=== PATIENT | female | born 1960 | race Caucasian/White ===

== ENCOUNTER 2023-02-25 05:55 | Observation (INO) | payer BC ==
[2023-02-20 09:44] LABS: Absolute Lymphocytes (CBC) 2.6 K/uL (0.7-4.9); Hematocrit 41.3 % (36.0-45.0); Lymphocytes % 42.7 % (15.3-44.8); MCV 96.4 fL (80-100); RBC Red Blood Cell Count 4.28 M/uL (3.86-4.86)
[2023-02-20 10:02] LABS: Potassium 4.7 mEq/L (3.5-5.1)
[2023-02-20 10:37] LABS: Protime INR 0.93
[2023-02-25] MEDS: Ringers Lactate 1,000 ML IV ONE ×2 (06:20→08:13)
[2023-02-25] MEDS ORDERED: VANCOMYCIN 1 GM/VIAL ONE (06:20)
[2023-02-25] MEDS ORDERED: FENTANYL CITR 100 MCG/2 ML ONE ×2 (07:19→08:04)
[2023-02-25] MEDS ORDERED: dexAMETHasone 10 MG/ML VIAL ONE ×2 (07:19→08:04)
[2023-02-25] MEDS ORDERED: EPINEPHRINE/PF 1 MG/ML AMP ONE (07:20)
[2023-02-25] MEDS ORDERED: LIDOCAINE 1% MPF 2 ML AMPULE ONE (07:20)
[2023-02-25] MEDS ORDERED: MIDAZOLAM HCL 2 MG/2 ML INJ ONE (07:20)
[2023-02-25] MEDS ORDERED: ROCURONIUM 50 MG/5 ML VIAL IV ONE ×2 (08:04→10:59)
[2023-02-25] MEDS ORDERED: LIDOCAINE 2% MPF 5 ML VIAL ONE ×2 (08:04→08:38)
[2023-02-25] MEDS ORDERED: propofoL 200 MG/20 ML VIAL IV ONE (08:04)
[2023-02-25] MEDS ORDERED: KETOROLAC 30 MG/ML INJ ONE (08:06)
[2023-02-25] MEDS ORDERED: ONDANSETRON 4 MG/2 ML VIAL ONE ×2 (08:06→12:34)
[2023-02-25] MEDS ORDERED: NA CHLORIDE 0.9% 500 ML ONE (08:18)
[2023-02-25] MEDS ORDERED: CEFAZOLIN SODIUM 1 GM/VIAL ONE ×2 (08:24→09:02)
[2023-02-25] MEDS ORDERED: NS 0.9% VIAL 20 ML ONE (08:24)
[2023-02-25] MEDS ORDERED: NS 0.9% VIAL 10 ML ONE ×2 (09:02→09:26)
[2023-02-25] MEDS ORDERED: Ringers Lactate 1,000 ML IV ONE (09:31)
[2023-02-25] MEDS ORDERED: SUGAMMADEX SODIUM 200 MG/2 ML VIAL IV ONE (11:03)
--- NOTE | 2023-02-25 12:25 | P.BOP ---
Preoperative diagnosis: left shoulder osteoarthritis Postoperative diagnosis: same Primary procedure: left total shoulder arthroplasty Resort Keeper: NONE,NONE Estimated blood loss: 50 cc Specimen: left humeral head Findings: see dictation Anesthesia: General Complications: None Implants: Biomet Alba 11 Mini stem, 2 glenoid w/ TM post, 46x18 head Fluids & blood products: per anesthesia record; Transferred to: Recovery Room Condition: Good
--- NOTE | 2023-02-25 12:31 | P.OP ---
Preoperative diagnosis: left shoulder osteoarthritis Postoperative diagnosis: same Primary procedure: left total shoulder arthroplasty Anesthesia: general Estimated blood loss: 50 cc Specimen: left humeral head Findings: see dictation Operative Technique: Indication For Procedure: Margo is a 62-year-old female who presented to my clinic with signs, symptoms and x-ray findings consistent with severe left shoulder osteoarthritis. Patient failed conservative treatment measures including home exercise program as well as corticosteroid injections. Her pain affected her activities of daily living. I discussed with the patient risks and benefits associated with operative and nonoperative treatment. She expressed understanding and elected to proceed with operative treatment. Description Of Procedure: After informed consent was obtained, the patient was identified in the preoperative holding area. The left upper extremity was marked. The patient was then taken back to the PACU and underwent an interscalene block to her left upper extremity performed by Anesthesia. She was then transferred to the operating table in a supine fashion and placed under general endotracheal anesthesia. She was placed in the beach chair position with her extremities well padded. The left upper extremity was then prepped and draped in the usual sterile fashion. A time-out was initiated. The correct patient and procedure were confirmed and identified. The patient did receive preoperative prophylactic antibiotics. Ativan was placed over the left shoulder. Approximately a 12 cm incision was made to the left shoulder using a deltopectoral approach, centered just proximal to the medial aspect of the arm. Dissection was then taken to the fascia. The cephalic vein was identified and was marked in the interval. The cephalic vein was gently retracted medially. A Kolbel retractor was then placed, protecting the deltoid as well as pec, retracting the pec medially and the deltoid laterally. It was placed just deep to the coracoid and the conjoined tendon protecting the musculocutaneous nerve. The axillary nerve was also identified and protected throughout the case. The subscapularis was identified. At the base of the subscapularis, 3 blood vessels were tied and cauterized using Bovie electrocautery. Just medial to the lesser tuberosity, the subscapularis was transected. Medial aspect to the tendon was then tagged using #5 Ethibond sutures from superior to inferior. The subscapularis was then gently retracted medially. The capsule was then released off the proximal humerus to the level of the humeral neck near the 6 o'clock position. A large osteophyte of the undersurface of the humeral neck was then removed using an osteotome and rongeurs. A Hohmann retractor was then placed gen tly behind the humeral head and the humeral head was then dislocated by extending the shoulder as well as externally rotating it. The rotator cuff was found to be intact. Entry reamer was then placed down the proximal humerus in a sequential fashion, a size 11 mm reamer was placed. Once it was placed in a proper depth and there was good overall fit, the cutting guide was then placed on the reamer where 30 degrees of retroversion was marked and the cutting jig was placed over the reamer and pinned into position on the humeral head. The cut was made just superior to the rotator cuff insertion. Once pinned into position and a proper version was marked, a saw was then used to cut the humeral head. The cut humeral head segment was sent to the back table and measured and a size 46 x 18 mm head was selected. The proximal humerus was then broached in 1 mm increments from a size 7 mm broach to a size 11 mm broach with good overall fit. A cap was then placed in the proximal humerus and then gently retracted. Batman and Avi retractors were then placed and a Hohmann retractor was placed in the superior aspect of the glenoid. Labrum was then excised and there was a capsule release anterior, posteriorly, inferiorly and superiorly for to adequate exposure to the glenoid. Once the glenoid was exposed properly, a pin was placed in the central position. The glenoid surface was then reamed to debride off the cartilage surface to near bleeding bony bed. Central peg was then was then drilled over the central guide pin and the glenoid was prepared. The wound was then irrigated thoroughly with normal saline. A small glenoid was selected. The cement was prepared on the back table and placed within the 3 peripheral pecs and the central peg was left clean given the porous coating of the glenoid implant. Final glenoid implant was then placed andheld into position until the cement was completely hard. The final size 13 mm mini stem was then placed up to the proximal humerus. It was then irrigated. There was good overall fit. It was then trialed using a using a 46 x 18 mm head. There was good overall fit and range of motion with the selective head. A final 46 x 18 head was then placed and knocked into position. The shoulder was again reduced at full range of motion with good overall stability noted. The subscapularis was then repaired using #5 Ethibond sutures which had been placed earlier with a free needle. There was good overall external rotation with maintenance of repair. Next, the retractors were then removed and superficial fascia was approximated using a 0 Vicryl, subcutaneous tissue was approximated using a 2-0 Vicryl, skin was approximated using alondra. Sterile dressings were applied. The patient was placed in a shoulder immobilizer, awakened, and transferred to the PACU in stable condition. Postoperative Plan: She will be admitted to the hospital overnight for observation. Physical Therapy will be consulted to get the patient up and moving around. She will be discharged in the morning after pain is controlled. Complications: None Implants: Biomet Alba 11 mini stem, 2 Glenoid with TM post, 46x18 mm head Fluids & blood products: per anesthesia record Transferred to: Recovery Room Condition: Good
[2023-02-25] MEDS ORDERED: DOCUSATE NA 100 MG CAP PO PRN (12:34)
[2023-02-25] MEDS ORDERED: HYDROCODONE/APAP 7.5/325 MG TAB PO PRN (12:34)
[2023-02-25] MEDS ORDERED: ONDANSETRON 4 MG/2 ML VIAL IV PRN (12:34)
--- NOTE | 2023-02-25 12:53 | RAD REPORT ---
EXAM DESCRIPTION: Shoulder 1 View - 02/25/2023 12:29 pm CLINICAL HISTORY: S/P LEFT TOTAL SHOULDER ARTHROPLASTY COMPARISON: Shoulder Left Wo Cont dated 04/21/2022 TECHNIQUE: Single AP view of the left shoulder FINDINGS: Left total shoulder arthroplasty hardware in satisfactory alignment. Skin alondra and soft tissue gas in the vicinity of the arthroplasty, relating to recent postoperative changes. There is n o periprostatic fracture. AC joint shows mild degenerative changes. No acute or suspicious findings. Interstitial prominence in the visualized central lungs, could relate to mild congestion or fluid ove rload, please correlate clinically. IMPRESSION: Expected postoperative appearance of left total shoulder arthroplasty as above.
--- OUTSIDE RECORDS SUMMARY | 2023-02-25 12:56 | XMS REPORT | Clinical Summary ---
:1960 Author Organization [facility] Address [address] [place] [address] Care Team Providers Name Role Phone Michael Francois MD Unavailable Aide Nickerson MD Primary Care Provider Allergies Active Allergy Reactions Severity Noted Date Comments Penicillins Itching 02/23/2019 Reaction as a y oung adult Medications Medication Sig Dispensed Refills Start Date End Date Status cholecalciferol, Take 1 capsule by 0 Active vitamin D3, (VITAMIN mouth daily. D3) 2,000 unit capsule zinc gluconate 50 mg Take 50 mg by 0 Active tablet mouth daily. ascorbic acid, vitamin Take 1,000 mg by 0 Active C, (vitamin C) 1000 mg mouth daily. tablet oxybutynin Take by mouth. 0 Acti ve (DITROPAN-XL) 10 mg 24 hr tablet Active Problems Problem Noted Date Submucous leiomyoma of uterus 06/22/2019 Mass of uterus 03/02/2019 Stenosis of cervix uteri 02/24/2019 Postmenopausal bleeding 02/23/2019 Morbid (severe) obesity due to excess calories 019 Family history of malignant neoplasm of breast 019 Encounters Date Type Specialty Care Team Description 08/08/2022 Follow-Up Gynecology Aide Nickerson Endometrium thickened (Primary Dx); MD Enrrique Postmenopausal bleeding; Morbid (severe) obesity due to excess calories; Exercise counse ling 08/08/2022 Ancillary Procedure Radiology Barry Galvan PA En dometrium thickened; Postmenopausal bleeding 08/08/2022 Travel after 02/25/2022 Surgical History Surgery Date Site/Laterality Comments TUBAL LIGATION REVISION ARTHOPLASTY KNEE 01/27/2020 - 02/26/2020 Medical History Medical History Date Comments Morbid obesity Family History Medical History Relation Name Comments Breast cancer Maternal Aunt Breast cancer Mother Breast cancer Sister 1 Breast cancer Sister 2 Relation Name Status Comments Maternal Aunt Mother diagnosed in her 40s Sister 1 Alive diagnosed in her 40s Sister 2 Alive diagnosed in her late 60s Social History Tobacco Use Types Packs/Day Years Used Date Smoking Tobacco: Former Cigarettes Quit : 2005 Smokeless Tobacco: Never Alcohol Use Standard Drinks/Week Comments Yes 0 (1 standard drink = 0.6 oz pure alcoho l) occasionally 1-2 beer or wine Sex Assigned at Date Recorded Female 09/13/2019 7:57 AM [employer] Job Start Date Occupation Industry Not on file Not on file Not on file Obstetrics History Para Term AB IAB SAB Ectopic Multiple Living Live Births 3 3 3 3 Date Outcome GA Total Labor/2nd/3rd Weight Sex Delivery Anes PTL Heike A 1 A5 Name Clin Labor Term Term Term Last Filed Vital Signs Vital Sign Reading Time Taken Comments Blood Pressure 136/70 08/08/2022 11:41 AM [employer] Pulse 70 08/08/2022 11:41 AM [employer] Temperature 36.7 C (98.1 F) 08/08/2022 11:41 AM [employer] Respiratory Rate 17 08/08/2022 11:41 AM [employer] Oxygen Saturation - - Inhaled Oxygen Concentration - - Weight 114.3 kg (251 lb 15.8 oz) 08/08/2022 11:41 AM [employer] Height - - Body Mass Index 42.24 02/23/2019 10:24 AM CDT Plan of Treatment Date Type Specialty Care Team Description 08/07/2023 Ancillary Procedure Radiology Carlos Nickerson MD [address] [place], [place] [address] ([place]) 08/07/2023 Follow-Up Gynecology Aide Nickerson MD [address] [place], [place] [address] ([place]) Health Maintenance Due Date Last Done Comments COVID-19 Vaccination (#1) 03/27/1961 Procedures Procedure Name Priority Date/Time Associated Diagnosis Comme nts US 3D NOT UTILIZING Routine 08/08/2022 9:42 AM Endometrium Re sults for this WORKSTATION [employer] thickened procedure are in Postmenopausal the results bleeding section. US PELVIS LIMITED Routine 08/08/2022 9:42 AM Endometrium Resu lts for this [employer] thickened procedure are in Postmenopausal the results bleeding section. US TRANSVAGINAL Routine 08/08/2022 9:42 AM Endometrium Result s for this [employer] thickened procedure are in Postmenopausal the results bleeding section. after 02/25/2022 Results US Transvaginal (08/08/2022 9:42 AM VP [employer]) Anatomical Region Laterality Modality Pelvis Ultrasound Specimen (Source) Anatomical Collection Method Collection Time Re ceived Time Location / / Volume Laterality 08/08/2022 9:43 AM [employer] Impressions 08/08/2022 10:07 AM [employer] Endometrium is not completely evaluated with persistent endometrial thickening. No significant interval change in size o f fibroids including a lesion involving the endometrium which may be a submucosal fibroid. Normal sonographic appearance of the ova alonso. Narrative 08/08/2022 10:07 AM [employer] Examination: US TRANSVAGINAL, US PELVIS LIMITED, US 3D NOT UTILIZING WORKSTATION on 08/08/2022 9:42 AM Clinical History: Endometrium thickened Postmenopausal bleeding Indication: Other:, Thickened endometriu m, history of post-menopausal bleeding Comparison: 08/09/2021 Technique: Grayscale and color Doppler t ransvaginal pelvic ultrasound. Additional Limited transabdominal pelvic exam was performed. 3-D evaluation of the endometrium. Findings: Nabothian cysts at the cervix. Uterus measures 6.8 x 4.1 x 4.9 cm. Endo metrium is not fully visualized with thickness measuring up to 1.4 cm. No increased vascular flow is appreciated endometrium. Uterine fibroids have not significantly changed in interval. There is a fibroid at the left uterus measuring 1.5 x 1.0 x 1.7 cm. Previously 1.5 x 1.0 x 1.7 cm. A lesion involving the endometrium may rep resent a submucosal fibroid which measur es 1.2 x 0.9 x 1.4 cm. Previously this measured 1.2 x 1.4 x 0.9 cm. Right ovary is unremarkable measuring 1. 4 x 1.5 x 1.2 cm with a volume of 1.3 mL. The left ovary is only seen transabdominally measuring 1.7 x 1.6 x 1.4 cm with a volume of 2 mL. No pelvic fluid. Procedure Note Lina Frias MD - 08/08/2022 Examination: US TRANSVAGINAL, US PELVIS LIMITED, US 3D NOT UTILIZING WORKSTATION on 08/08/2022 9:42 AM Clinical History: Endometrium thickened Postmenopausal bleeding Indication: Other:, Thickened endometriu m, history of post-menopausal bleeding Comparison: 08/09/2021 Technique: Grayscale and color Doppler t ransvaginal pelvic ultrasound. Additional Limited transabdominal pelvic exam was performed. 3-D evaluation of the endometrium. Findings: Nabothian cysts at the cervix. Uterus measures 6.8 x 4.1 x 4.9 cm. Endo metrium is not fully visualized with thickness measuring up to 1.4 cm. No increased vascular flow is appreciated endometrium. Uterine fibroids have not significantly changed in interval. There is a fibroid at the left uterus measuring 1.5 x 1.0 x 1.7 cm. Previously 1.5 x 1.0 x 1.7 cm. A lesion involving the endometrium may represent a submucosal fibroid which measures 1.2 x 0.9 x 1.4 cm. Previously this measured 1.2 x 1.4 x 0.9 cm. Right ovary is unremarkable measuring 1. 4 x 1.5 x 1.2 cm with a volume of 1.3 mL. The left ovary is only seen transabdominally measuring 1.7 x 1.6 x 1.4 cm with a volume of 2 mL. No pelvic fluid. IMPRESSION: Endometrium is not completely evaluated with persistent endometrial thickening. No significant interval change in size o f fibroids including a lesion involving the endometrium which may be a submucosal fibroid. Normal sonographic appearance of the ova alonso. Barry BUAMANN US ORDERABLES US Pelvis Limited (08/08/2022 9:42 AM [employer]) Anatomical Region Laterality Modality Pelvis Ultrasound Specimen (Source) Anatomical Collection Method Collection Time Re ceived Time Location / / Volume Laterality 08/08/2022 9:43 AM VP [employer] Impressions 08/08/2022 10:07 AM VP [employer] Endometrium is not completely evaluated with persistent endometrial thickening. No significant interval change in size o f fibroids including a lesion involving the endometrium which may be a submucosal fibroid. Normal sonographic appearance of the ova alonso. Narrative 08/08/2022 10:07 AM VP [employer]IC Examination: US TRANSVAGINAL, US PELVIS LIMITED, US 3D NOT UTILIZING WORKSTATION on 08/08/2022 9:42 AM Clinical History: Endometrium thickened Postmenopausal bleeding Indication: Other:, Thickened endometriu m, history of post-menopausal bleeding Comparison: 08/09/2021 Technique: Grayscale and color Doppler t ransvaginal pelvic ultrasound. Additional Limited transabdominal pelvic exam was performed. 3-D evaluation of the endometrium. Findings: Nabothian cysts at the cervix. Uterus measures 6.8 x 4.1 x 4.9 cm. Endo metrium is not fully visualized with thickness measuring up to 1.4 cm. No increased vascular flow is appreciated endometrium. Uterine fibroids have not significantly changed in interval. There is a fibroid at the left uterus measuring 1.5 x 1.0 x 1.7 cm. Previously 1.5 x 1.0 x 1.7 cm. A lesion involving the endometrium may rep resent a submucosal fibroid which measur es 1.2 x 0.9 x 1.4 cm. Previously this measured 1.2 x 1.4 x 0.9 cm. Right ovary is unremarkable measuring 1. 4 x 1.5 x 1.2 cm with a volume of 1.3 mL. The left ovary is only seen transabdominally measuring 1.7 x 1.6 x 1.4 cm with a volume of 2 mL. No pelvic fluid. Procedure Note Lina Frias MD - 08/08/2022 Examination: US TRANSVAGINAL, US PELVIS LIMITED, US 3D NOT UTILIZING WORKSTATION on 08/08/2022 9:42 AM Clinical History: Endometrium thickened Postmenopausal bleeding Indication: Other:, Thickened endometriu m, history of post-menopausal bleeding Comparison: 08/09/2021 Technique: Grayscale and color Doppler t ransvaginal pelvic ultrasound. Additional Limited transabdominal pelvic exam was performed. 3-D evaluation of the endometrium. Findings: Nabothian cysts at the cervix. Uterus measures 6.8 x 4.1 x 4.9 cm. Endo metrium is not fully visualized with thickness measuring up to 1.4 cm. No increased vascular flow is appreciated endometrium. Uterine fibroids have not significantly changed in interval. There is a fibroid at the left uterus measuring 1.5 x 1.0 x 1.7 cm. Previously 1.5 x 1.0 x 1.7 cm. A lesion involving the endometrium may represent a submucosal fibroid which measures 1.2 x 0.9 x 1.4 cm. Previously this measured 1.2 x 1.4 x 0.9 cm. Right ovary is unremarkable measuring 1. 4 x 1.5 x 1.2 cm with a volume of 1.3 mL. The left ovary is only seen transabdominally measuring 1.7 x 1.6 x 1.4 cm with a volume of 2 mL. No pelvic fluid. IMPRESSION: Endometrium is not completely evaluated with persistent endometrial thickening. No significant interval change in size o f fibroids including a lesion involving the endometrium which may be a submucosal fibroid. Normal sonographic appearance of the ova alonso. Barry BAUMANN US ORDERABLES US 3D Not Utilizing Workstation (08/08/2022 9:42 AM VP [employer]) Anatomical Region Laterality Modality Ultrasound Specimen (Source) Anatomical Collection Method Collection Time Re ceived Time Location / / Volume Laterality 08/08/2022 9:43 AM VP [employer] Impressions 08/08/2022 10:07 AM VP [employer]IC Endometrium is not completely evaluated with persistent endometrial thickening. No significant interval change in size o f fibroids including a lesion involving the endometrium which may be a submucosal fibroid. Normal sonographic appearance of the ova alonso. Narrative 08/08/2022 10:07 AM [employer] Examination: US TRANSVAGINAL, US PELVIS LIMITED, US 3D NOT UTILIZING WORKSTATION on 08/08/2022 9:42 AM Clinical History: Endometrium thickened Postmenopausal bleeding Indication: Other:, Thickened endometriu m, history of post-menopausal bleeding Comparison: 08/09/2021 Technique: Grayscale and color Doppler t ransvaginal pelvic ultrasound. Additional Limited transabdominal pelvic exam was performed. 3-D evaluation of the endometrium. Findings: Nabothian cysts at the cervix. Uterus measures 6.8 x 4.1 x 4.9 cm. Endo metrium is not fully visualized with thickness measuring up to 1.4 cm. No increased vascular flow is appreciated endometrium. Uterine fibroids have not significantly changed in interval. There is a fibroid at the left uterus measuring 1.5 x 1.0 x 1.7 cm. Previously 1.5 x 1.0 x 1.7 cm. A lesion involving the endometrium may rep resent a submucosal fibroid which measur es 1.2 x 0.9 x 1.4 cm. Previously this measured 1.2 x 1.4 x 0.9 cm. Right ovary is unremarkable measuring 1. 4 x 1.5 x 1.2 cm with a volume of 1.3 mL. The left ovary is only seen transabdominally measuring 1.7 x 1.6 x 1.4 cm with a volume of 2 mL. No pelvic fluid. Procedure Note Lina Frias MD - 08/08/2022 Examination: US TRANSVAGINAL, US PELVIS LIMITED, US 3D NOT UTILIZING WORKSTATION on 08/08/2022 9:42 AM Clinical History: Endometrium thickened Postmenopausal bleeding Indication: Other:, Thickened endometriu m, history of post-menopausal bleeding Comparison: 08/09/2021 Technique: Grayscale and color Doppler t ransvaginal pelvic ultrasound. Additional Limited transabdominal pelvic exam was performed. 3-D evaluation of the endometrium. Findings: Nabothian cysts at the cervix. Uterus measures 6.8 x 4.1 x 4.9 cm. Endo metrium is not fully visualized with thickness measuring up to 1.4 cm. No increased vascular flow is appreciated endometrium. Uterine fibroids have not significantly changed in interval. There is a fibroid at the left uterus measuring 1.5 x 1.0 x 1.7 cm. Previously 1.5 x 1.0 x 1.7 cm. A lesion involving the endometrium may represent a submucosal fibroid which measures 1.2 x 0.9 x 1.4 cm. Previously this measured 1.2 x 1.4 x 0.9 cm. Right ovary is unremarkable measuring 1. 4 x 1.5 x 1.2 cm with a volume of 1.3 mL. The left ovary is only seen transabdominally measuring 1.7 x 1.6 x 1.4 cm with a volume of 2 mL. No pelvic fluid. IMPRESSION: Endometrium is not completely evaluated with persistent endometrial thickening. No significant interval change in size o f fibroids including a lesion involving the endometrium which may be a submucosal fibroid. Normal sonographic appearance of the ova alonso. Barry BAUMANN ORDERABLES after 02/25/2022 Insurance Payer Benefit Plan / Subscriber ID Effective Dates Phone Addre ss Type Group [employer] POS [id number] 2021-Present [id number] [place] [address] [address] [facility] (Home) [place] [id number] Margo Woody Personal/Family Self 1960 [address] [facility] (Home[facility] [place] [id number] Margo Woody Personal/Family Self 1960 [address] [facility] (Home) [place] [address] Care Teams Manager Farm Relationship Specialty Start Date End Date Michael Francois PCP - External Obstetrics/Gynecology 01/26/19 MD Manny Referring [address] [place] [address] Aide Nickerson, PCP - General Gynecological Oncology 02/23/[address] [place] [id number]
--- OUTSIDE RECORDS SUMMARY | 2023-02-25 12:59 | XMS REPORT | Continuity of Care Document ---
:1960 Author Organization [facility] t Address [address] [place] [address] Care Team Providers Name Role Phone [phone] Primary Care Physician Unavailable Allen Interiano Attending Clinician Unavailable Michele Malcolm Attending Clinician Unavailable SYSTEM, PROVIDER NOT IN Attending Clinician Unavailable KAREL PARRA Attending Clinician Unavailable LU CALHOUN Attending Clinician Unavailable RONNY GAMBINO Attending Clinician Unavailable Ronny Forbes Attending Clinician Doctor Unassigned, Mcnary Attending Clinician Unavailable RICHARD KELLER Attending Clinician Unavailable Richard Keller MD Attending Clinician Diamante Nickerson MD Attending Clinician DIAMANTE NICKERSON Attending Clinician Unavailable Barry Wei Attending Clinician Unavailable BARRY BOSS Attending Clinician Unavailable KAREL PARRA Attending Clinician Unavailable Ross Delacruz MD Attending Clinician [facility] Attending Clinician Unavailable ROSS DELACRUZ Attending Clinician Unavailable Only, Adc Test Attending Clinician Unavailable Ubaldo SAUCEDO Attending Clinician Unavailable Ubaldo De La Rosa Attending Clinician Doug HALL, Ronny Cortes Attending Clinician Unavailable Solano PAC, Lulu Hager Attending Clinician Karel Parra MD Attending Clinician SHERYL TOVAR Attending Clinician Unavailable Michele Malcolm Admitting Clinician Unavailable KAREL PARRA Admitting Clinician Unavailable LU CALHOUN Admitting Clinician Unavailable RONNY GAMBINO Admitting Clinician Unavailable ROSS DELACRUZ Admitting Clinician Unavailable Jayme RAMOS, Ross Admitting Clinician Ubaldo SAUCEDO Admitting Clinician Unavailable SHERYL TOVAR Admitting Clinician Unavailable Payers Payer Name Policy Type Policy Number Effective Date Expiration Date S [facility]orothy [facility] [id number] 2019-09-28 BLUE/ESSENTIAL 00:00:00 S [employer] 6 [id number] 2022-08-12 Common Spiri t Blue Shield of 00:00:00 - [facility] OUT OF STATE [id number] BS - PPO - [facility] BC-ADRIANA [id number] PCP Problems Condition Condition Condition Status Onset Resolution Last Treating Co mments Source Name Details Category Date Date Treatment Clinician Date Kidney Kidney Disease Active Univers stone stone 3-08 ity of 00:00: [address] Branch Morbid Morbid Disease Active Univers obesity obesity 3-07 [place]y of with [place] mass index 00 Me dical of of Branch 40.0-49.9 40.0-49.9 Left Left Disease Active Univers ureteral ureteral 3-07 ity of stone stone 00:00: [address] Osteoarthr Osteoarthr Disease Active C [facility] itis of 5-16 [facility] right knee right knee 00:00: Me dical 00 Center Displaced Displaced Disease Active 2019-[address] fracture fracture 1-18 [facility] of lateral of lateral 00:00: Me dical condyle of condyle of 00 Ce nter right right tibia, tibia, initial initial encounter encounter for closed for closed fracture fracture Acute Acute Disease Active 2019-[address] lateral lateral 10-15 [facility] meniscal meniscal 00:00: Medica l tear, tear, 00 Center initial initial encounter encounter Fracture Fracture Disease Active 2019-09 [facility] S t closed, closed, 10-15 [facility] fibula, fibula, 00:00: Medical shaft shaft 00 Center Closed Closed Disease Active 2019-09 Overview: [facility] fracture fracture 16 Form[facility] Col lege of lateral of lateral 00:00: g of this of portion of portion of 00 note Me dicin right right might be e tibial tibial different plateau plateau from the original. Assessmen t:DOI - 08/03/20 - R omariker 2 tibial plateau fxDOS - 08/15/20 - planned ORIF R omariker 2 tibial plateauPl an:- collapse of the lateral tibial plateau with difficult y walking- referred to Dr Carito renee for a knee replaceme ntMedicat ions: NSAIDsWei ght Bearing Status: WBATPT / OT: Range of motion exercises and isometric muscles strengthe bello exercises were demonstra dina with the patient.R TC: PRNRadiog raphs at next visit: R knee weight bearing Submucous Submucous Disease Active 2019 Uni vers leiomyoma leiomyoma 9-25 ity of of uterus of [place] [facility] Mass of Mass of Disease Active 2019- Univers uterus uterus 6-05 ity of 00:00: [place] 00 MD Cecy renee [facility] Stenosis Stenosis Disease Active 2019- Unive rs of cervix of cervix 5-30 ity of uteri uteri 00:00: [place] 00 MD Cecy renee [facility] [place] Postmenopa Postmenopa Disease Active 2019- U nivers usal usal 5-29 ity of bleeding bleeding 00:00: [place] 00 MD Cecy renee [facility] Morbid Morbid Disease Active 2019- Univers (severe) (severe) 5-29 ity of obesity obesity 00:00: [place] due to due to 00 excess excess Cecy calories [facility] Family Family Disease Active 2019- Univers history of history of 5-29 it y of malignant malignant 00:00: [place] neoplasm neoplasm 00 of breast of breast Jamal rso [facility] [id number] Primary Problem Comm on osteoarthr Spirit itis of - [facility] left [facility] shoulder [facility] [id number] Tear of Problem Commo n left Spirit rotator - CHI cuff, St unspecifie [facility] d tear Medical extent, Center unspecifie d whether traumatic Incomplete Problem Co mmon tear of Spirit left - [facility] rotator St cuff, [facility] unspecifie Medica l d whether Center traumatic Allergies, Adverse Reactions, Alerts Allergy Allergy Status Severity Reaction(s) Onset Inactive Treating Comm ents Source Name Type Date Date Clinician Hydrocod Propensi Active Nausea Univer s one ty to and/or 04-04 ity of adverse Vomiting 00:00: [place] reaction 00 Medical s Branch HYDROCOD DRUG Active N/V Univers ONE INGREDI 04-04 ity of 00:00: [place] 00 Medical Branch Hydrocod Propensi Active [facility] one ty to 04-04 College adverse 00:00: of reaction 00 Medicin s to e drug PENICILL Drug Active Itching 2018-0 MD INS Class 5-29 Anderso 00:00: n 00 PENICILL Drug Active Itching 2019-0 MD INS Class 5-29 Anderso 00:00: n 00 PENICILL Drug Active Itching 2019-0 MD INS Class 5-29 Anderso 00:00: n 00 PENICILL Drug Active Itching 2019-0 MD INS Class 5-29 Anderso 00:00: n 00 PENICILL Drug Active Itching 2019-0 MD INS Class 5-29 Anderso 00:00: n 00 PENICILL Drug Active Itching 2019-0 MD INS Class 5-29 Anderso 00:00: n 00 PENICILL Drug Active Itching 2019-0 MD INS Class 5-29 Anderso 00:00: n 00 Penicill Drug Active Itching 2018-0 Reaction Unive rs ins Allergy - as a ity of 00:00: young [place] 00 adultReac Medical tion as a Branch young adultReac tion as a young adultReac tion as a young adult PENICILL Drug Active Med Rash 2019-0 Univers INS Class 5-29 ity of 00:00: [place] 00 Medical Branch PENICILL Allergy Active Med Itching [facility] 00:[facility]: Medical 00 Center Penicill Propensi Active Itching Reaction [place] ins ty to 02-23 as a College adverse 00:00: young of reaction 00 adult Medicin s to e drug Penicill Propensi Active Itching Reaction Uni vers ins ty to 02-23 as a ity of adverse 00:00: young [place] reaction 00 adult MD erma Sam n [facility] [place] Penicill Drug Active Itching [facility] ins Allergy 02-23 [facility] 00:00: Medical 00 [place] PENICILL Drug Active Itching MD INS Class 5-29 Anderso 00:00: n 00 PENICILL Drug Active Itching 2018- MD INS Class 5-29 Anderso 00:00: n 00 [id number] Drug Active Unknown Common 85 allergy [facility] Family History Family Member Diagnosis Comments Start Date Stop Date Source Maternal aunt [facility] Can r [place] Natural mother Breast cancer [facility] Natural sister Breast cancer [facility] Social History Social Habit Start Date Stop Date Quantity Comments Source History of Cigarette Smoker [facility] ty of tobacco use [facility] Exposure to 2022-12-07 2022-12-17 Not sure University SARS-CoV-2 00:00:00 10:30:00 [facility] (event) [place] Tobacco use and 2022-12-17 2022-12-17 Smokeless tobacco Un iversity of exposure 00:00:00 00:00:00 non-user [facility] Cigarette 2022-02-20 2022-02-20 [facility] of pack-years 00:00:00 00:00:00 Medicine Alcohol intake 2021-02-14 2021-02-14 Current drink[facility] 00:[facility]00 00:00:00 alcohol (finding) Medical [place] Alcohol Comment 2020-08-14 2020-08-[address] [facility] 00:00:00 00:00:00 Medical [place] Sex Assigned At [address] [facility] 00:00:00 00:00:00 Medical [place] Smoking Status Start Date Stop Date Source Ex-smoker 2022-12-17 00:00:00 2022-12-17 00:00:[address] [facility] Never smoked tobacco [facility] Medications Ordered Filled Start Stop Current Ordering Indication Dosage Frequency Signature Comments Components Source Medication Medication Date Date Medication? Clinician (SIG) Name Name TOLTERODINE Yes [id number] 4mg TAKE 1 Univers [place] 4 mg 24 4-18 CAPSULE BY ity of hr capsule 00:00: [place]TH WITH [place] 00 LUNCH [facility] cholecalcif Yes 1{capsu Take 1 U nivers zhane, 3-29 le} capsule by ity of vitamin D3, 04:48: mouth [place] (VITAMIN 07 daily. D3) 2,000 Anderso unit n capsule [facility] zinc Yes 50mg Take 50 mg Univers gluconate 3-29 by mouth ity of 50 mg 04:48: daily. [place] tablet 07 MD Cecy renee [facility] ascorbic 0 Yes 1000mg Take 1,000 U nivers acid, 3-29 mg by ity of vitamin C, 04:48: mouth [place] (vitamin C) 07 daily. 1000 mg Andrichie tablet n [facility] oxybutynin Yes Take by [facility] ers (DITROPAN-X 3-29 mouth. ity of L) 10 mg 24 04:48: [place] hr tablet 07 Andrichie renee [facility] zinc Yes 50mg Take 50 mg Univers gluconate 1-04 by mouth. ity o f 50 mg 10:26: [place] tablet 14 [facility] Cholecalcif Yes 1{capsu Take 1 U nivers zhane, 1-04 le} capsule by ity of Vitamin D3, 10:26: mouth [place] 50 mcg 14 daily. Medical (2,000 Branch unit) capsule vitamin C Yes 1000mg Take 1,000 Univers with merced 1-04 mg by ity of hips 1,000 10:26: mouth. [place] mg tablet 14 [facility] zinc Yes 50mg Take 50 mg Univers gluconate 1-04 by mouth. ity o f 50 mg 10:26: [place] tablet 14 [facility] Branch Cholecalcif Yes 1{capsu Take 1 U nivers zhane, 1-04 le} capsule by ity of Vitamin D3, 10:26: mouth [place] 50 mcg 14 daily. Medical (2,000 Branch unit) capsule vitamin C Yes 1000mg Take 1,000 Univers with merced 1-04 mg by ity of hips 1,000 10:26: mouth. [place] mg tablet 14 Medical Branch zinc 3-0 Yes 50mg Take 50 mg Univers gluconate 1-04 by mouth. ity o f 50 mg 10:26: [place] tablet 14 Medical Branch Cholecalcif 2022-0 Yes 1{capsu Take 1 U nivers zhane, 1-04 le} capsule by ity of Vitamin D3, 10:26: mouth [place] 50 mcg 14 daily. Medical (2,000 Branch unit) capsule vitamin C 2022-0 Yes 1000mg Take 1,000 Univers with merced 1-04 mg by ity of hips 1,000 10:26: mouth. [place] mg tablet 14 Medical Branch zinc 2022-0 Yes 50mg Take 50 mg Univers gluconate 1-04 by mouth. ity o f 50 mg 10:26: [place] tablet 14 Medical Branch Cholecalcif 2022-0 Yes 1{capsu Take 1 U nivers zhane, 1-04 le} capsule by ity of Vitamin D3, 10:26: mouth [place] 50 mcg 14 daily. Medical (2,000 Branch unit) capsule vitamin C 2022-0 Yes 1000mg Take 1,000 Univers with merced 1-04 mg by ity of hips 1,000 10:26: mouth. [place] mg tablet 14 Medical Branch zinc 2022-0 Yes 50mg Take 50 mg Univers gluconate 1-04 by mouth. ity o f 50 mg 10:26: [place] tablet 14 Medical Branch Cholecalcif 2022-0 Yes 1{capsu Take 1 U nivers zhane, 1-04 le} capsule by ity of Vitamin D3, 10:26: mouth [place] 50 mcg 14 daily. Medical (2,000 Branch unit) capsule vitamin C 2022-0 Yes 1000mg Take 1,000 Univers with merced 1-04 mg by ity of hips 1,000 10:26: mouth. [place] mg tablet 14 Medical Branch zinc 2022-0 Yes 50mg Take 50 mg Univers gluconate 1-04 by mouth. ity o f 50 mg 10:26: [place] tablet 14 Medical Branch Cholecalcif 2022-0 Yes 1{capsu Take 1 U nivers zhane, 1-04 le} capsule by ity of Vitamin D3, 10:26: mouth [place] 50 mcg 14 daily. Medical (2,000 Branch unit) capsule vitamin C 2022-0 Yes 1000mg Take 1,000 Univers with merced 1-04 mg by ity of hips 1,000 10:26: mouth. [place] mg tablet 14 Medical Branch zinc 2022-0 Yes 50mg Take 50 mg Univers gluconate 1-04 by mouth. ity o f 50 mg 10:26: [place] tablet 14 Medical Branch Cholecalcif 2022-0 Yes 1{capsu Take 1 U nivers zhane, 1-04 le} capsule by ity of Vitamin D3, 10:26: mouth [place] 50 mcg 14 daily. Medical (2,000 Branch unit) capsule vitamin C 2022-0 Yes 1000mg Take 1,000 Univers with merced 1-04 mg by ity of hips 1,000 10:26: mouth. [place] mg tablet 14 Medical Branch zinc 2022-0 Yes 50mg Take 50 mg Univers gluconate 1-04 by mouth. ity o f 50 mg 10:26: [place] tablet 14 Medical Branch Cholecalcif 0 Yes 1{capsu Take 1 U nivers zhane, 1-04 le} capsule by ity of Vitamin D3, 10:26: mouth [place] 50 mcg 14 daily. Medical (2,000 Branch unit) capsule vitamin C 2022-0 Yes 1000mg Take 1,000 Univers with merced 1-04 mg by ity of hips 1,000 10:26: mouth. [place] mg tablet 14 Medical Branch tolterodine 0 Yes [id number] 4mg TAKE 1 Univers [place] 4 mg 24 1-03 CAPSULE BY ity of hr capsule 00:00: [place]TH [place] 00 LUNCH Medical Branch tolterodine 2022-0 Yes [id number] 4mg TAKE 1 Univers [place] 4 mg 24 1-03 CAPSULE BY ity of hr capsule 00:00: [place]TH [place] 00 LUNCH Medical Branch tolterodine 2022-0 Yes [id number] 4mg TAKE 1 Univers [place] 4 mg 24 1-03 CAPSULE BY ity of hr capsule 00:00: [place]TH [place] 00 LUNCH Medical Branch tolterodine 2022-0 Yes [id number] 4mg TAKE 1 Univers [place] 4 mg 24 1-03 CAPSULE BY ity of hr capsule 00:00: [place]TH [place] 00 LUNCH Medical Branch tolterodine 2022-0 Yes [id number] 4mg TAKE 1 Univers [place] 4 mg 24 1-03 CAPSULE BY ity of hr capsule 00:00: MOUTH [place] 00 LUNCH Medical Branch tolterodine 2022-0 Yes [id number] 4mg TAKE 1 Univers [place] 4 mg 24 1-03 CAPSULE BY ity of hr capsule 00:00: MOUTH WITH [place] 00 LUNCH Medical Branch tolterodine 3-0 Yes [id number] 4mg TAKE 1 [facility] [place] 4 mg 24 1-03 CAPSULE BY ity of hr capsule 00:00: MOUTH WITH [place] 00 LUNCH Medical Branch tolterodine 3-0 2023- No [id number] 4mg TAKE 1 Univers [place] 4 mg 24 1-03 04-18 CAPSULE BY it y of hr capsule 00:00: 00:00 MOUTH WITH [place] 00 :00 LUNCH Medical Branch tolterodine 2021-1 Yes [id number] 4mg Take 1 Univers [place] (DETROL 1-30 capsule by ity of [place]) 4 mg 24 00:00: mouth with [place] hr capsule 00 lunch. Medical Branch tolterodine 2021-1 Yes [id number] 4mg Take 1 Univers [place] (DETROL 1-30 capsule by ity of [place]) 4 mg 24 00:00: mouth with [place] hr capsule 00 lunch. Medical Branch Bupivicaine Bupivicaine 2021-0 No 2.5mg Common [place] Braggs 8-02 Spirit 00:00: - [facility]I 00 [facility] Kenalog Kenalog 2021-0 No 40mg Common (Triamcinol (Triamcinol 8-02 S pirit one) one) 00:00: - CHI 00 [facility] Bupivicaine Bupivicaine 2-0 No 2.5mg Common Braggs Braggs 8-02 Spirit 00:00: - CHI 00 [facility] Kenalog Kenalog 2021-0 No 40mg Common (Triamcinol (Triamcinol 8-02 S pirit one) one) 00:00: - CHI 00 [facility] Bupivicaine Bupivicaine 2021-0 No 2.5mg Common [place]ag[place] Braggs 8-02 Spirit 00:00: - CHI 00 [facility] Kenalog Kenalog 2021-0 No 40mg Common (Triamcinol (Triamcinol 8-02 S pirit one) one) 00:00: - CHI 00 [facility] Bupivicaine Bupivicaine 2-0 No 2.5mg Common [place] Braggs 8-02 Spirit 00:00: - CHI 00 [facility] Kenalog Kenalog 2021-0 No 40mg Common (Triamcinol (Triamcinol 8-02 S pirit one) one) 00:00: - CHI 00 [facility] Bupivicaine Bupivicaine 2021-0 No 2.5mg Common [place]ag[place] Braggs 8-02 Spirit 00:00: - CHI 00 [facility] Kenalog Kenalog 2021-0 No 40mg Common (Triamcinol (Triamcinol 8-02 S pirit one) one) 00:00: - CHI 00 [facility] Bupivicaine Bupivicaine 2021-0 No 2.5mg Common Braggs Braggs 8-02 Spirit 00:00: - CHI 00 [facility] Kenalog Kenalog 2021-0 No 40mg Common (Triamcinol (Triamcinol 8-02 S pirit one) one) 00:00: - CHI 00 [facility] Bupivicaine Bupivicaine 2021-0 No 2.5mg Common Braggs Braggs 8-02 Spirit 00:00: - CHI 00 [facility] Kenalog Kenalog 2021-0 No 40mg Common (Triamcinol (Triamcinol 8-02 S pirit one) one) 00:00: - CHI 00 [facility] Bupivicaine Bupivicaine 2021-0 No 2.5mg Common [place]aggs Braggs 8-02 Spirit 00:00: - CHI 00 [facility] Kenalog Kenalog 2021-0 No 40mg Common (Triamcinol (Triamcinol 8-02 S pirit one) one) 00:00: - CHI 00 [facility] Bupivicaine Bupivicaine 2021-0 No 2.5mg Common Braggs Braggs 8-02 Spirit 00:00: - CHI 00 [facility] Kenalog Kenalog 2021-0 No 40mg Common (Triamcinol (Triamcinol 8-02 S pirit one) one) 00:00: - CHI 00 [facility] ibuprofen 2021-0 2021- No 600mg Take 600 [facility] (MOTRIN) 5-26 05-26 mg by College 200 mg 09:52: 00:00 mouth. of tablet 59 :00 Medicin e acetaminoph 2021- No 500mg Take 500 [facility] en 5-26 05-26 mg by College (TYLENOL) 09:52: 00:00 mouth. of 500 mg 53 :00 Medicin tablet e zinc 2021-0 Yes 50mg Take 50 mg Univers gluconate 3-18 by mouth. ity o f 50 mg 20:23: [place] tablet 34 Medical Branch Cholecalcif 2021-0 Yes 1{capsu Take 1 U nivers zhane, 3-18 le} capsule by ity of Vitamin D3, 20:23: mouth [place] 50 mcg 34 daily. Medical (2,000 Branch unit) capsule vitamin C 2021-0 Yes 1000mg Take 1,000 Univers with merced 3-18 mg by ity of hips 1,000 20:23: mouth. [place] mg tablet 34 Medical Branch zinc 2021-0 Yes 50mg Take 50 mg Univers gluconate 3-18 by mouth. ity o f 50 mg 20:23: [place] tablet 34 Medical Branch Cholecalcif 2021-0 Yes 1{capsu Take 1 U nivers zhane, 3-18 le} capsule by ity of Vitamin D3, 20:23: mouth [place] 50 mcg 34 daily. Medical (2,000 Branch unit) capsule vitamin C 2021-0 Yes 1000mg Take 1,000 Univers with merced 3-18 mg by ity of hips 1,000 20:23: mouth. [place] mg tablet 34 Medical Branch zinc 2021-0 Yes 50mg Take 50 mg Univers gluconate 3-18 by mouth. ity o f 50 mg 20:23: [place] tablet 34 Medical Branch Cholecalcif 2021-0 Yes 1{capsu Take 1 U nivers zhane, 3-18 le} capsule by ity of Vitamin D3, 20:23: mouth [place] 50 mcg 34 daily. Medical (2,000 Branch unit) capsule vitamin C 2021-0 Yes 1000mg Take 1,000 Univers with merced 3-18 mg by ity of hips 1,000 20:23: mouth. [place] mg tablet 34 Medical Branch zinc 2021-0 Yes 50mg Take 50 mg Univers gluconate 3-18 by mouth. ity o f 50 mg 20:23: [place] tablet 34 Medical Branch Cholecalcif 2021-0 Yes 1{capsu Take 1 U nivers zhane, 3-18 le} capsule by ity of Vitamin D3, 20:23: mouth [place] 50 mcg 34 daily. Medical (2,000 Branch unit) capsule vitamin C Yes 1000mg Take 1,000 Univers with merced 3-18 mg by ity of hips 1,000 20:23: mouth. [place] mg tablet 34 Medical Branch ibuprofen Yes 600mg Take 600 [place] [facility] (MOTRIN) 7-08 mg by [place] 200 mg 12:02: mouth. of tablet 47 Medicin e acetaminoph Yes 500mg Take 500 [facility] [place] en 7-08 mg by [place] (TYLENOL) 12:02: mouth. of 500 mg 47 Medicin tablet e tramadol Yes 1{tbl} Take 1 [facility] (ULTRAM) 50 6-03 Tablet by Col lege MG tablet 00:00: mouth of 00 every 6 Medicin hours as e needed for Pain. tramadol Yes 1{tbl} Take 1 [facility] (ULTRAM) 50 6-03 Tablet by Col lege MG tablet 00:00: mouth of 00 every 6 Medicin hours as e needed for Pain. tramadol 2021- No 1{tbl} Take 1 [facility] (ULTRAM) 50 6-03 05-26 Tablet by Co llege MG tablet 00:00: 00:00 mouth of 00 :00 every 6 Medicin hours as e needed for Pain. tramadol 2020- No 1{tbl} Take 1 [facility] (ULTRAM) 50 5-21 06-03 Tablet by Co llege MG tablet 00:00: 00:00 mouth of 00 :00 every 6 Medicin hours as e needed for Pain. ibuprofen Yes 600mg Take [address] (ADVIL,MOTR 5-20 mg by [place] IN) 200 MG 12:30: mouth Medica l tablet 13 every 8 Center (eight) hours as needed . cholecalcif Yes 1{capsu QD Take [address] zhane, 5-20 le} capsule by [place] vitamin D3, 12:30: mouth Medic al 50 mcg 13 daily . Center (2,000 unit) Cap oxybutynin Yes 10mg QD Take [address] (DITROPAN-X 4-22 by mouth [place] L) 10 MG 24 00:00: daily . Med ical hr tablet 00 Center albuterol Yes INHALE 2 [facility] 108 (90 1-12 PUFFS BY [place] base) 00:00: MOUTH of mcg/act 00 EVERY 4 TO Medici n inhaler 6 HOURS e NEEDED azithromyci Yes TAKE 2 [facility] n 1-12 TABLETS BY [place] (ZITHROMAX) 00:00: MOUTH ON of 250 MG 00 DAY 1 THEN Medicin tablet 1 TABLET e ON DAY 2 THROUGH 5 Pseudoeph-B Yes TAKE 5 TO B v[facility] romphen-DM 10-09 [facility] 00:00: OPIOID of MG/5ML SYRP 00 THERAPY ML Me dicin BY MOUTH e THREE TIMES DAILY NEEDED albuterol Yes INHALE 2 [facility] 108 (90 1-12 PUFFS BY [place] base) 00:00: MOUTH of mcg/act 00 EVERY 4 TO Medici n inhaler 6 HOURS e NEEDED azithromyci Yes TAKE 2 [facility] n 1-12 TABLETS BY [place] (ZITHROMAX) 00:00: MOUTH ON of 250 MG 00 DAY 1 THEN Medicin tablet 1 TABLET e ON DAY 2 THROUGH 5 Pseudoeph-B [facility] 10[facility]09 [facility] 00:00: OPIOID of MG/5ML SYRP 00 THERAPY ML Me dicin BY MOUTH e THREE TIMES DAILY NEEDED Pseudoeph-B 0 2022- No TAKE 5 TO [facility] romphen-DM 10-09 [facility] 00:00: 00:00 OPIOID of MG/5ML SYRP 00 :00 THERAPY ML Me dicin BY MOUTH e THREE TIMES DAILY NEEDED albuterol 2021- No INHALE 2 [place] 108 (90 -12 05-26 PUFFS BY [place] base) 00:00: 00:00 MOUTH of mcg/act 00 :00 EVERY 4 TO Medici n inhaler 6 HOURS e NEEDED azithromyci 0 2021- No TAKE 2 [place] n -12 - TABLETS BY [place] (ZITHROMAX) 00:00: 00:00 MOUTH ON o f 250 MG 00 :00 DAY 1 THEN Medicin tablet 1 TABLET e ON DAY 2 THROUGH 5 Tylenol # 3 Tylenol # 3 2019- No Tylenol # 300/30mg 300/30mg 1-13 3 300/30mg 00:00: 00 Tylenol # 3 Tylenol # 3 2019- No Tylenol # 300/30mg 300/30mg 1-13 3 300/30mg 00:00: 00 oxybutynin 2021- No Univer s 10 mg 24 hr 3-10 11-30 ity of tablet 00:00: 00:00 [place] 00 :00 Medical Branch oxybutynin 2021- No Univer s 10 mg 24 hr 3-10 11-30 ity of tablet 00:00: 00:00 [place] 00 :00 Medical Branch Fluticasone Fluticasone No Fluticason Propionate Propionate e Propionate Vitamin D Vitamin D No Vitamin D Zinc Zinc No Zinc Plenvu Plenvu No Plenvu Acetaminoph Acetaminoph No Acetaminop en-Codeine en-Codeine hen-Codein #3 #3 e #3 Oxybutynin Oxybutynin No 1{table QD Oxybutynin Chloride ER Chloride ER t} Chloride 10 MG 10 MG ER 10 MG Vitamin C Vitamin C No Vitamin C Fluticasone Fluticasone No Fluticason Propionate Propionate e Propionate Vitamin D Vitamin D No Vitamin D Zinc Zinc No Zinc Plenvu Plenvu No Plenvu Acetaminoph Acetaminoph No Acetaminop en-Codeine en-Codeine hen-Codein #3 #3 e #3 Oxybutynin Oxybutynin No 1{table QD Oxybutynin Chloride ER Chloride ER t} Chloride 10 MG 10 MG ER 10 MG Vitamin C Vitamin C No Vitamin C Fluticasone Fluticasone No Fluticason Propionate Propionate e Propionate Vitamin D Vitamin D No Vitamin D Zinc Zinc No Zinc Plenvu Plenvu No Plenvu Acetaminoph Acetaminoph No Acetaminop en-Codeine en-Codeine hen-Codein #3 #3 e #3 Oxybutynin Oxybutynin No 1{table QD Oxybutynin Chloride ER Chloride ER t} Chloride 10 MG 10 MG ER 10 MG Vitamin C Vitamin C No Vitamin C Fluticasone Fluticasone No Fluticason Propionate Propionate e Propionate Vitamin D Vitamin D No Vitamin D Zinc Zinc No Zinc Plenvu Plenvu No Plenvu Acetaminoph Acetaminoph No Acetaminop en-Codeine en-Codeine hen-Codein #3 #3 e #3 Oxybutynin Oxybutynin No 1{table QD Oxybutynin Chloride ER Chloride ER t} Chloride 10 MG 10 MG ER 10 MG Vitamin C Vitamin C No Vitamin C Vitamin C Vitamin C No Vitamin C Plenvu Plenvu No Plenvu Tolterodine Tolterodine No 1{capsu QD Tolterodin Tartrate ER Tartrate ER le} e Tartrate 4 MG 4 MG ER 4 MG Vitamin D Vitamin D No Vitamin D Acetaminoph Acetaminoph No Acetaminop en-Codeine en-Codeine hen-Codein #3 #3 e #3 Zinc Zinc No Zinc Fluticasone Fluticasone No Fluticason Propionate Propionate e Propionate Fluticasone Fluticasone No Fluticason Propionate Propionate e Propionate Acetaminoph Acetaminoph No Acetaminop en-Codeine en-Codeine hen-Codein #3 #3 e #3 Plenvu Plenvu No Plenvu Acetaminoph Acetaminoph No Acetaminop en-Codeine en-Codeine hen-Codein #3 #3 e #3 HYDROcodone HYDROcodone No HYDROcodon -Acetaminop -Acetaminop e-Acetamin hen hen ophen traMADol traMADol No traMADol HCl HCl HCl Acetaminoph Acetaminoph No Acetaminop en-Codeine en-Codeine hen-Codein #3 #3 e #3 HYDROcodone HYDROcodone No HYDROcodon -Acetaminop -Acetaminop e-Acetamin hen hen ophen traMADol traMADol No traMADol HCl HCl HCl No Known No Known No Common Medications Medications S pirit - [facility] Fluticasone Fluticasone No Fluticason Propionate Propionate e Propionate Acetaminoph Acetaminoph No Acetaminop en-Codeine en-Codeine hen-Codein #3 #3 e #3 Plenvu Plenvu No Plenvu Fluticasone Fluticasone No Fluticason Propionate Propionate e Propionate Plenvu Plenvu No Plenvu Acetaminoph Acetaminoph No Acetaminop en-Codeine en-Codeine hen-Codein #3 #3 e #3 Fluticasone Fluticasone No Fluticason Propionate Propionate e Propionate Vitamin D Vitamin D No Vitamin D Zinc Zinc No Zinc Plenvu Plenvu No Plenvu Acetaminoph Acetaminoph No Acetaminop en-Codeine en-Codeine hen-Codein #3 #3 e #3 Oxybutynin Oxybutynin No 1{table QD Oxybutynin Chloride ER Chloride ER t} Chloride 10 MG 10 MG ER 10 MG Vitamin C Vitamin C No Vitamin C Vital Signs Vital Name Observation Time Observation Value Comments Source HEIGHT 2021-02-13 09:29:00 167.6 cm WEIGHT 2021-02-13 09:29:00 109.7 kg HEIGHT 2021-02-07 11:23:00 167.6 cm WEIGHT 2021-02-07 11:23:00 117.935 kg HEIGHT 2020-08-15 07:00:00 167.6 cm WEIGHT 2020-08-15 07:00:00 105.3 kg HEIGHT 2020-08-14 12:30:00 165.1 cm WEIGHT 2020-08-14 12:30:00 117.935 kg Systolic blood 2022-12-17 15:49:00 126 mm[Hg] [facility] Diastolic blood 2022-12-17 15:49:00 71 mm[Hg] Unive rs[facility] Heart rate 2022-12-17 15:49:00 70 /min [facility] Body temperature 2022-12-17 15:49:00 36.56 [facility] Respiratory rate 2022-12-17 15:49:00 18 /min [facility] Body height 2022-12-17 15:49:00 167.6 cm [facility] Body weight 2022-12-17 15:49:00 117.981 kg [facility] BMI 2022-12-17 15:49:00 41.98 kg/m2 [facility] Oxygen saturation in 2022-12-17 15:49:00 97 /min [facility] blood [facility] Pulse oximetry Branch height 2022-10-27 10:30:00 66 [in_i] [facility] weight 2022-10-27 10:30:00 252 [lb_av] [facility] temperature 2022-10-27 10:30:00 94.5 [degF] [facility] bmi 2022-10-27 10:30:00 40.67 kg/m2 Common S pirit - [facility] blood pressure 2022-10-27 10:30:00 132 mm[Hg] [facility] - systolic [facility] blood pressure 2022-10-27 10:30:00 66 mm[Hg] [facility] - diastolic [facility] Systolic blood 2022-10-01 16:26:00 141 mm[Hg] [facility] Diastolic blood 2022-10-01 16:26:00 72 mm[Hg] [facility] Heart rate 2022-10-01 16:26:00 67 /min Universi ty [facility] Body temperature 2022-10-01 16:26:00 36.61 [facility] rate 2022-10-01 16:26:00 17 /min [facility] Body height 2022-10-01 16:26:00 167.6 cm Universi ty [facility] Body weight 2022-10-01 16:26:00 113.762 kg Universi ty [facility] BMI 2022-10-01 16:26:00 40.48 kg/m2 Universi [facility] Oxygen saturation in 2022-10-01 16:26:00 99 /min University Arterial blood by [facility] Pulse oximetry Branch Systolic blood 2022-08-27 14:56:00 131 mm[Hg] [facility] Diastolic blood 2022-08-27 14:56:00 83 mm[Hg] [facility] Heart rate 2022-08-27 14:56:00 71 /min Universi ty [facility] Body temperature 2022-08-27 14:56:00 36.78 Natasha [facility] Body height 2022-08-27 14:56:00 167.6 cm Universi ty [place] [facility] Body weight 2022-08-27 14:56:00 113.49 [facility] 2022-08-27 14:56:00 40.38 kg/m2 [facility] Oxygen saturation in 2022-08-27 14:56:00 98 /min [facility] blood [facility] Pulse oximetry Branch height 2022-08-13 09:30:00 66 [in_i] Common [facility] weight 2022-08-13 09:30:00 249.4 [lb_av] Common [facility] temperature 2022-08-13 09:30:00 97.0 [degF] Common [facility] bmi 2022-08-13 09:30:00 40.25 kg/m2 [facility] oximetry 2022-08-13 09:30:00 98 % [facility] respiratory rate 2022-08-13 09:30:00 18 /min Comm on [facility] blood pressure 2022-08-13 09:30:00 132 mm[Hg] [facility] blood pressure 2022-08-13 09:30:00 65 mm[Hg] Common [facility] - diastolic [facility] height 2022-08-11 10:30:00 66 [in_i] Common [facility] weight 2022-08-11 10:30:00 250 [lb_av] Common [facility] temperature 2022-08-11 10:30:00 97.6 [degF] Common [facility] bmi 2022-08-11 10:30:00 40.35 kg/m2 Common [facility] blood pressure 2022-08-11 10:30:00 126 mm[Hg] Common [facility] - systolic [facility] blood pressure 2022-08-11 10:30:00 72 mm[Hg] [facility] height 2022-06-30 13:30:00 66 [in_i] Common S pirit - [facility] weight 2022-06-30 13:30:00 253 [lb_av] Common S pirit - [facility] temperature 2022-06-30 13:30:00 97.1 [degF] Common S pirit - [facility] bmi 2022-06-30 13:30:00 40.83 kg/m2 Common [facility] blood pressure 2022-06-30 13:30:00 138 mm[Hg] [facility] blood pressure 2022-06-30 13:30:00 86 mm[Hg] [facility] height 2022-04-09 10:00:00 66 [in_i] Common S pirit [facility] weight 2022-04-09 10:00:00 251.3 [lb_av] [facility] bmi 2022-04-09 10:00:00 40.56 kg/m2 Common S pirit - [facility] blood pressure 2022-04-09 10:00:00 130 mm[Hg] [facility] blood pressure 2022-04-09 10:00:00 80 mm[Hg] [facility] height 2022-03-04 14:30:00 66 [in_i] Common S pirit [facility] weight 2022-03-04 14:30:00 250 [lb_av] Common S pirit - [facility] temperature 2022-03-04 14:30:00 97.9 [degF] Common S pirit - [facility] bmi 2022-03-04 14:30:00 40.35 kg/m2 Common S pirit [facility] blood pressure 2022-03-04 14:30:00 138 mm[Hg] [facility] blood pressure 2022-03-04 14:30:00 74 mm[Hg] [facility] Body height 2022-02-20 14:51:00 167.6 cm [facility] Body weight 2022-02-20 14:51:00 113.399 kg Jeff [facility] BMI 2022-02-20 14:51:00 40.35 kg/m2 [facility] Systolic blood 2022-02-19 15:10:00 129 mm[Hg] [facility] Diastolic blood 2022-02-19 15:10:00 77 mm[Hg] [facility] Heart rate 2022-02-19 15:10:00 64 /min [facility] Body temperature 2022-02-19 15:10:00 36.67 Natasha [facility] Body height 2022-02-19 15:10:00 170.2 cm [facility] Body weight 2022-02-19 15:10:00 113.807 kg Universi ty [facility] BMI 2022-02-19 15:10:00 39.30 kg/m2 Universi ty [facility] Oxygen saturation in 2022-02-19 15:10:00 97 /min University Arterial blood by [facility] Pulse oximetry Branch Body height 2021-04-04 17:01:00 167.6 cm [facility] Body weight 2021-04-04 17:01:00 108.863 kg [facility] BMI 2021-04-04 17:01:00 38.74 kg/m2 [facility] Body height 2021-02-28 15:53:00 167.6 cm [facility] Body weight 2021-02-28 15:53:00 108.863 kg [facility] BMI 2021-02-28 15:53:00 38.74 kg/m2 [facility] HEIGHT 2021-02-13 09:29:00 167.6 cm WEIGHT 2021-02-13 09:29:00 109.7 kg HEIGHT 2021-02-07 11:23:00 167.6 cm WEIGHT 2021-02-07 11:23:00 117.935 kg HEIGHT 2020-08-15 07:00:00 167.6 cm WEIGHT 2020-08-15 07:00:00 105.3 kg HEIGHT 2020-08-14 12:30:00 165.1 cm WEIGHT 2020-08-14 12:30:00 117.935 kg Systolic blood 2022-08-08 17:41:00 136 mm[Hg] Univshaylee sity of pressure [place] [facility] Diastolic blood 2022-08-08 17:41:00 70 mm[Hg] Unive rsity of pressure [place] [facility] Heart rate 2022-08-08 17:41:00 70 /min [facility] Body temperature 2022-08-08 17:41:00 36.72 [facility] Respiratory rate 2022-08-08 17:41:00 17 /min [facility] Body weight 2022-08-08 17:41:[address] [facility] BMI 2022-08-08 17:41:00 42.24 kg/m2 [facility] Procedures Procedure Date / Time Performing Clinician Source Performed MEDICAL RELEASE/CLEARANCE 2022-12-25 05:01:00 Doctor Unassigned, [facility] FORMS [facility] ASSIGNMENT OF BENEFITS 2022-12-17 15:32:21 Doctor Unassigned, [facility] US TRANSVAGINAL 2022-08-08 15:42:00 [facility] f [place] [facility] US PELVIS LIMITED 2022-08-08 15:42:00 Diamante Nickerson [facility] US 3D NOT UTILIZING 2022-08-08 15:42:00 Diamante Nickerson [facility] WORKSTATION [facility] ORT - XR KNEE RIGHT 4V 2022-02-20 09:54:40 [facility] (CHARGE ONLY) Medicine US RETROPERITONEAL 2022-02-19 15:00:[address] [facility] COMPLETE Medical Branch Plan of Care Planned Activity Planned Date Details Comments Source Future Scheduled 2023-05-[address] [facility] Test 00:00:00 (Season Ended) [code = [facility] INFLUENZA VACCINE (Season Ended)] Future Scheduled 2022-09-[address] [facility] Test 00:00:00 (12+) [code = Medical Center DEPRESSION SCREENING (12+)] Future Scheduled 2022-09-18 COVID-19 Vaccination Uni versity of Test 15:16:08 (#1) [code = COVID-19 [facility] Vaccination (#1)] Cancer [facility] ter Future Scheduled 2022-02-20 Screening for malignant [facility] Test 09:54:48 neoplasm of colon Medicine (procedure) [code = 198047511] Future Scheduled 2022-02-20 Screening for malignant [facility] Test 09:54:48 neoplasm of breast Medicine (procedure) [code = 962498363] Future Scheduled 2022-02-20 COVID-19 Vaccine (#1) [facility] Test 09:54:48 [code = COVID-19 Medicine Vaccine (#1)] Future Scheduled 2022-02-20 TETANUS SHOT (ADULT) [facility] Test 09:54:48 [code = TETANUS SHOT Medicin e (ADULT)] Future Scheduled 2022-02-20 BMI FOLLOW UP PLAN [facility] Test 09:54:48 [code = BMI FOLLOW UP Medici ne PLAN] Future Scheduled 2022-02-20 Hepatitis C screening [facility] Test 09:54:48 (procedure) [code = Medicine 921513436] Future Scheduled 2022-02-20 Human immunodeficiency B [facility] Test 09:54:48 virus screening Medicine (procedure) [code = 136728080] Future Scheduled 2022-02-20 Screening for malignant [facility] Test 09:54:48 neoplasm of cervix Medicine (procedure) [code = 014698572] Future Scheduled 2022-02-20 ZOSTER VACCINE (1 of 2) [facility] Test 09:54:48 [code = ZOSTER VACCINE Medic ine (1 of 2)] Future Scheduled 2022-02-20 FLU VACCINE > 6 MONTHS B [facility] Test 09:54:48 [code = FLU VACCINE > 6 Medi cine MONTHS] Future Scheduled 2022-02-20 ORT - XR KNEE RIGHT 4V Ordered: B [facility] Test 09:54:40 (CHARGE ONLY) [code = 02/20/2022 [place] [address]] Future Scheduled 2022-02-[address] [facility] Test 00:00:00 Counseling and Medical Cente r Screening (12+) [code = Tobacco Cessation Counseling and Screening (12+)] Future Scheduled 2021-04-04 Screening for malignant [facility] Test 12:31:47 neoplasm of colon Medicine (procedure) [code = 280179939] Future Scheduled 2021-04-04 Screening for malignant [facility] Test 12:31:47 neoplasm of breast Medicine (procedure) [code = 759280467] Future Scheduled 2021-04-04 COVID-19 Vaccine (1) [facility] Test 12:31:47 [code = COVID-19 Medicine Vaccine (1)] Future Scheduled 2021-04-04 TETANUS SHOT (ADULT) [facility] Test 12:31:47 [code = TETANUS SHOT Medicin e (ADULT)] Future Scheduled 2021-04-04 BMI FOLLOW UP PLAN [facility] Test 12:31:47 [code = BMI FOLLOW UP Medici ne PLAN] Future Scheduled 2021-04-04 Hepatitis C screening [facility] Test 12:31:47 (procedure) [code = Medicine 689852100] Future Scheduled 2021-04-04 Human immunodeficiency B [facility] Test 12:31:47 virus screening Medicine (procedure) [code = 605315284] Future Scheduled 2021-04-04 Screening for malignant [facility] Test 12:31:47 neoplasm of cervix Medicine (procedure) [code = 290296579] Future Scheduled 2021-04-04 ZOSTER VACCINE (1 of 2) [facility] 12:31:47 [code = ZOSTER VACCINE Medic ine (1 of 2)] Future Scheduled 2021-04-04 FLU VACCINE > 6 MONTHS B [facility] Test 12:31:47 [code = FLU VACCINE > 6 Medi cine MONTHS] Future Scheduled 2021-04-04 ORT - XR KNEE RIGHT 4V Ordered: B [facility] Test 12:01:17 (CHARGE ONLY) [code = 04/04/2021 [place] [address]] Future Scheduled 2021-02-28 Screening for malignant [facility] Test 11:04:08 neoplasm of colon Medicine (procedure) [code = 111729207] Future Scheduled 2021-02-28 Screening for malignant [facility] Test 11:04:08 neoplasm of breast Medicine (procedure) [code = 440240518] Future Scheduled 2021-02-28 COVID-19 Vaccine (1) [facility] Test 11:04:08 [code = COVID-19 Medicine Vaccine (1)] Future Scheduled 2021-02-28 TETANUS SHOT (ADULT) [facility] Test 11:04:08 [code = TETANUS SHOT Medicin e (ADULT)] Future Scheduled 2021-02-28 BMI FOLLOW UP PLAN [facility] Test 11:04:08 [code = BMI FOLLOW UP Medici ne PLAN] Future Scheduled 2021-02-28 Hepatitis C screening [facility] Test 11:04:08 (procedure) [code = Medicine 939353338] Future Scheduled 2021-02-[address] [facility] 11:04:08 virus screening Medicine (procedure) [code = 350960212] Future Scheduled 2021-02-28 Screening for malignant [facility] 11:04:08 neoplasm of cervix Medicine (procedure) [code = 957229879] Future Scheduled 2021-02-28 ZOSTER VACCINE (1 of 2) [facility] 11:04:08 [code = ZOSTER VACCINE Medic ine (1 of 2)] Future Scheduled 2021-02-28 FLU VACCINE > 6 MONTHS B [facility] Test 11:04:08 [code = FLU VACCINE > 6 Medi cine MONTHS] Future Scheduled 2009 SHINGLES VACCINES ([address] [facility] Test 00:00:00 2) [code = SHINGLES Medical Center VACCINES (1 of 2)] Future Scheduled 2004 Lipid panel (procedure) [facility] Test 00:00:00 [code = 10920611] Medical Ce nter Future Scheduled 1980 Screening for malignant [facility] Test 00:00:00 neoplasm of cervix Medical C enter (procedure) [code = 637283421] Future Scheduled 1978 DTAP/TDAP/TD VACCINES [facility] Test 00:00:00 (1 - Tdap) [code = Medical C enter DTAP/TDAP/TD VACCINES (1 - Tdap)] Future Scheduled 1977 HEPATITIS C SCREENING [facility] Test 00:00:00 [code = HEPATITIS C Medical Center SCREENING] Future Scheduled 1960-03-27 COVID-19 VACCINE (#1) [facility] Test 00:00:00 [code = COVID-[address] VACCINE (#1)] Future Scheduled 1959 Screening for malignant [facility] Test 00:00:00 neoplasm of breast Medical C enter (procedure) [code = 462110979] Future Scheduled 1959 CT Colonography (combo) [facility] Test 00:00:00 [code = CT Colonography [facility] (combo)] Future Scheduled 1959 Screening for malignant [facility] Test 00:00:00 neoplasm of colon Medical Ce nter (procedure) [code = 227622347] Future Scheduled 1959 Screening for malignant [facility] Test 00:00:00 neoplasm of colon Medical Ce nter (procedure) [code = 167523239] Future Scheduled 1959 Screening for malignant [facility] Test 00:00:00 neoplasm of colon Medical Ce nter (procedure) [code = 489449171] Future Scheduled 1959 Screening for malignant [facility] Test 00:00:00 neoplasm of colon Medical Ce nter (procedure) [code = 111733747] Future Scheduled 1959 Sigmoidoscopy [code = [facility] Test 00:00:00 Sigmoidoscopy] Medical Cente r Encounters Start End Encounter Admission Attending Care Care Encounter Source Date/Time Date/Time Type Type Clinicians Facility Department ID 2023-01-12 Outpatient Interiano, [facility] [id number] Common 09:33:01 Allen 23786 [facility] 2022-12-19 Outpatient Interiano, [facility] [id number] Common 10:45:01 Allen 78894 [facility] 2022-10-27 Outpatient Interiano, [facility] [id number] Common 16:15:02 Allen 83810 [facility] 2022-10-24 Outpatient Interiano, [facility] [id number] Common 10:03:02 Allen 13813 [facility] 2022-09-18 Outpatient Interiano, [facility] [id number] Common 08:43:00 Allen 07865 [facility] 2022-08-13 Outpatient Interiano, [facility] [id number] Common 09:29:01 [facility] [id number] [facility] 2022-04-30 Outpatient Feaver, [facility] [id number] Common 10:22:02 Michele [facility] 2022-03-04 [facility] [id number] Common 14:19:02 Michele [facility] 2022-02-06 Outpatient Feaver, [facility] [id number] Common 11:43:01 Michele [facility] 2021-10-24 Outpatient SYSTEM, NAMRATA OTT [id number] 12:42:26 PROVIDER Jordin renee 2021-10-23 [facility] [id number] Common 12:04:57 Michele [facility] 2021-07-06 Outpatient AIDA, [facility] Surgery [id number] SLE 13:34:20 KAREL 2021-07-04 Outpatient UNIQUE, [facility] Surgery [id number] SLE 11:45:59 LU 2023-01-13 2023-01-13 Zara Gambino [facility] 1.2.840.114 [id number] Univers 00:00:00 00:00:00 [facility] 350.1.13.10 it y of [place] [id number] [place] [address] Branch OFFICE BUILDING 2022-12-25 2022-12-25 Orders Doctor SHERYL 1.2.840.114 [id number] Univers 00:00:00 00:00:00 Only Unassigned, MIRI 350.1.13.10 ity of [place] [facility] 4.2.7.2.686 Barrett as [id number] [place] [address] Branch 2022-12-17 2022-12-17 Outpatient Maxim [facility] [id number] Univers 11:00:00 12:10:31 RICHARD [facility] 2022-12-172022-12-17 [facility] 1.2.840.114 [id number] Univers 11:00:00 12:10:31 Visit Richard GORDON 350.1.13.10 ity of [facility] 4[place] [id number] Md dical NAL 059 Branch [facility] 2022-12-17 2022-12-17 Orders Doctor SHERYL 1.2.840.114 [id number] Univers 00:00:00 00:00:00 Only Unassigned, MIRI 350.1.13.10 ity of [place] [facility] 4.2.7.2.686 Barrett as [id number] [place] [address] Branch 2022-10-27 2022-10-27 OFFICE [facility] [id number] Co mmon 00:00:00 00:00:00 VISIT [facility] PT - CHI LEVEL 4 [facility] 2022-10-01 2022-10-01 Office [facility] 1.2.840.114 [id number] Univers 11:00:00 11:00:00 Visit Sellsy 350.1.13.10 it [place] [phone] [facility] [address] OFFICE BUILDING 2022-10-01 2022-10-01 [facility] [id number] Univers 11:00:00 10:36:34 RONNY y [facility] 2022-09-02 2022-09-02 (TEL) [facility] [id number] Co mmon 00:00:00 00:00:00 Spirit [facility] 2022-08-27 2022-08-27 [facility] [id number] Univers 09:30:00 09:44:03 RONNY ity [facility] 2022-08-27 2022-08-27 Office [facility] 1.2.840.114 [id number] Univers 09:30:00 09:44:03 Visit Ronny ServiceMesh 350.1.13.10 [place] [id number] [place] [address] Branch OFFICE BUILDING 2022-08-26 2022-08-26 (TEL) STLMLC STLMLC [id number] Co mmon 00:00:00 00:00:00 [facility] 2022-08-13 2022-08-13 (TEL) STLMLC STLMLC [id number] Co mmon 00:00:00 00:00:00 Spirit [facility] 2022-08-13 2022-08-13 OFFICE STLMLC STLMLC [id number] Co mmon 00:00:00 00:00:00 VISIT NEW Spir it PT LEVEL 3 - [facility] 2022-08-11 2022-08-11 OFFICE STLMLC STLMLC [id number] Co mmon 00:00:00 00:00:00 VISIT Spirit ESTAB PT - CHI LEVEL 4 [facility] 2022-08-11 2022-08-11 (TEL) STLMLC STLMLC [id number] Co mmon 00:00:00 00:00:00 [facility] 2022-08-08 2022-08-08 Follow-Up Krishan, 1.2.840.1 [id number] [facility] 11:30:00 12:14:38 Diamante Osuna 38370.1.1 it y of 3.412.2.7 [place] .3.187319 .8 [facility] 2022-08-08 2022-08-08 Outpatient SARAY NICKERSON MDA MDA [id number] 10:33:06 12:14:38 DIAMANTE renee 2022-08-08 2022-08-08 Nora Boss 1.2.840.1 [id number] [facility] 09:15:00 10:15:00 Procedure Barry 47313.1.1 it y of 3.412.2.7 [place] .3.373269 .8 [facility] 2022-08-08 2022-08-08 Outpatient SARAY BOSS MDA MDA [id number] 257 08:36:57 08:36:57 BARRY renee 2022-08-08 2022-08-08 Travel 1.2.840.1 [id number] [id number] Univers 00:00:00 00:00:00 [id number] 350.1.13.41 ity of 3.412.2.7 2.2.7.3.698 Te samara .[id number] 084.8 .8 [facility] [place] 2022-06-30 2022-06-30 OFFICE STLMLC STLMLC [id number] Co mmon 00:00:00 00:00:00 VISIT Spirit ESTAB PT - CHI LEVEL 4 [facility] 2022-04-11 2022-04-11 (TEL) STLMLC STLMLC [id number] Co mmon 00:00:00 00:00:00 Spirit [facility] 2022-04-09 2022-04-09 OFFICE STLMLC STLMLC [id number] Co mmon 00:00:00 00:00:00 VISIT Spirit ESTAB PT - CHI LEVEL 4 [facility] 2022-03-05 2022-03-05 (TEL) STLMLC STLMLC [id number] Co mmon 00:00:00 00:00:00 [facility] 2022-03-04 2022-03-04 OFFICE STLMLC STLMLC [id number] Co mmon 00:00:00 00:00:00 VISIT Spirit ESTAB PT - CHI LEVEL 4 [facility] 2022-02-20 2022-02-20 Office SANDY PARRA 1.2.840.114 [id number] [facility] 09:12:35 10:25:30 Visit KAREL AMBULATOR 350.1.13.21 College Y 0.2.7.2.686 of [id number] Medi chaitanya 600 e 2022-02-20 2022-02-20 Outpatient [facility] [id number] [facility] 09:54:41 09:54:41 Wendy dennis of Medicin e 2022-02-19 2022-02-19 [facility] 1.2.840.114 [id number] 583 [facility] 09:11:40 23:59:00 Encounter Bilal HEALTH 350.1.13.10 [place] [id number] [facility] [address] (CLC) 2022-02-19 2022-02-19 Outpatient R [facility] [id number] Univers 10:00:00 13:04:42 RONNY ity [facility] 2022-02-19 2022-02-19 [facility] 1.2.840.114 [id number] Univers 10:00:00 10:30:00 Visit Ronny HEALTH 350.1.13.10 it y of [place] [id number] [facility] [address] OFFICE BUILDING 2022-02-19 2022-02-19 Outpatient R [facility] [id number] Univers 10:00:00 10:00:00 RONNY graf [facility] 2022-02-19 2022-02-19 Outpatient R [facility] [id number] Univers 10:00:00 10:00:00 RONNY [facility] 2022-01-24 2022-01-24 [facility] [id number] Univers 14:24:07 23:59:00 [facility] 2022-01-24 Hospital Cesar, [facility] 1.2.840.114 [id number] Univers 14:24:07 23:59:00 Encounter Ronny GORDON 350.1.13.10 it[place] [phone] [facility] [address] 2022-01-20 2022-01-20 Garage Attendant [facility] UNIVERSIT 1.2.840.114 [id number] Univers 16:30:00 16:45:00 Visit Ronny Gambino HEALTH 350.1.13.10 ity of [place] [facility] [place] [id number] [facility] [address] 2022-01-20 2022-01-20 Office FRANSISCO Gambino 1.2.840.114 [id number] Univers 16:00:00 16:30:00 Visit Ronny ASHLEY 350.1.13.10 i ty of CLINICS 4.2.7.2.686 [facility] [phone] [facility] [address] [place] 2022-01-20 2022-01-20 Outpatient Maxim [facility] [id number] Univers 16:00:00 16:00:00 RONNY ity [facility] 2022-01-20 2022-01-20 Outpatient Maxim [facility] [id number] Univers 16:00:00 16:00:00 [facility] 2021-12-13 2021-12-13 Outpatient R [facility] SUU [id number] Univers 14:10:00 20:15:00 BILAL ity [facility] 2021-12-13 2021-12-13 [facility] 1.2.840.114 [id number] Univers 14:10:00 20:15:00 Encounter Biltx HEALTH 350.1.13.10 ity of [place] 4.2.7.2.686 [facility] [id number] ([facility]) 2021-12-13 2021-12-13 [facility] 1.2.840.114 [id number] Univers 17:00:00 18:27:00 Bilal SPECIALTY 350.1.13.10 ity of CARE 4.2.7.2.686 [facility] AT [phone] Md dical BRANDI 020 [facility] 2021-12-13 2021-12-13 Orders Doctor SHERYL 1.2.840.114 [id number] Univers 00:00:00 00:00:00 Only Unassigned, MIRI 350.1.13.10 ity of [place] [facility] 4.2.7.2.686 [facility] [id number] [facility] [address] [place] 2021-12-11 2021-12-11 Laboratory Only, Adc Test [facility] 1.2.840. 114 [id number] Univers 13:00:00 13:15:00 Only Ross Delacruz 350.1.13.10 ity of [place] 4.2.7.2.686 [facility] [phone] [facility] [address] 2021-12-11 2021-12-11 Outpatient R [facility] [id number] Univers 13:00:00 13:00:00 BILAL ity [facility] 2021-12-10 2021-12-10 Office Jayme [facility] 1.2.840.114 [id number] Univers 15:30:00 15:45:00 Visit [facility] 350.1.13.10 it y of [place] 4.2.7.2.686 [facility] [phone] [facility] PRIMARY & [address] SPECIALTY CARE 2021-12-10 2021-12-10 [facility] [id number] Univers 15:30:00 15:30:00 BILAL ity [facility] 2021-12-06 2021-12-06 Emergency X LEWIS, K [facility] ERT [id number] Univers 16:19:00 18:55:00 ity [facility] 2021-12-06 2021-12-06 Emergency Ubaldo Saucedo [facility] 1.2.840.114 [id number] Univers 16:19:00 18:55:00 Christine GORDON 350.1.13.10 i ty of [place] 4.2.7.2.686 [facility] [phone] [facility] [address] 2021-12-06 2021-12-06 Emergency X LEWIS, K [facility] ERT [id number] Univers 16:19:00 18:55:00 ity [facility] 2021-12-06 2021-12-06 Transition BECK Camacho 1.2.840.114 [id number] Univers 00:00:00 00:00:00 of Care Ronny BARTH 350.1.13.10 i ty of [place] 4.2.7.2.686 [facility] [phone] [facility] [address] 2021-12-02 2021-12-05 Hospital Lulu Solano 1.2.840.11 [id number] Univers 10:55:00 14:50:00 Encounter Ross Delacruz 350.1.13.10 ity of [facility] 4.2.7.2.686 [place] as [phone] Medi syed [address] 2021-12-02 2021-12-05 Inpatient U JAYME [facility] ALEN [id number] Univers 10:55:00 14:50:00 BILAL [facility] 2021-12-02 2021-12-02 Travel 1.2.840.1 1.2.203.801 [id number] Univers 00:00:00 00:00:00 30585.1.1 350.1.13.10 ity of 3[place]104.2.[place].698 [place] .[id number] 084.8 Medica l .8 [place] 2021-12-02 2021-12-02 Orders Doctor 1.2.840.2 [id number] Univers 00:00:00 00:00:00 Only Unassigned, 83043.1.1 ity of [place] 3.104.2.7 [place] .3.615101 Medica l .8 [place] 2021-08-09 2021-08-09 Outpatient SARAY BOSS MDA MDA [id number] 13:38:17 13:38:17 BARRY renee 2021-08-09 2021-08-09 Outpatient SARAY OTT MDA [id number] 11:18:27 11:18:27 Jordin renee 2021-04-04 2021-04-04 Office SANDY Parra 1.2.840.114 [id number] [facility] 11:09:18 12:19:57 Visit Karel AMBULATOR 350.1.13.21 College Y 0.2.7.2.686 of [id number] Medi chaitanya 600 e 2021-04-04 2021-04-04 Outpatient [facility] [id number] [facility] 12:11:08 12:11:08 Wendy e of Medicin e 2021-02-28 2021-02-28 Office SANDY Parra 1.2.840.114 [id number] [facility] 09:51:18 11:26:59 Visit Karel AMBULATOR 350.1.13.21 College Y 0.2.7.2.686 of [id number] Medi chaitanya 600 e 2021-02-07 2021-02-07 Outpatient [facility] [id number] [facility] 00:00:00 00:00:00 2021-01-07 2021-01-07 Outpatient SANDY PARRA [facility] [id number] [facility] 15:15:04 16:02:54 KAREL Wendy dennis of Medicin e 2020-08-14 2020-08-14 Outpatient [facility] [id number] [facility]H 00:00:00 00:00:00 2020-08-10 2020-08-10 Outpatient [facility]LMLC [facility] [id number] Common 00:00:00 00:00:00 [facility] 2020-03-16 2020-03-16 Outpatient SARAY BOSS MDA NAMRATA [id number] 07:07:43 07:07:43 BARRY renee Results Test Description Test Time Test Comments Results Result Comments Source TISSUE EXAM 2021-03-06 Surgical Pathology 18:45:00 Report Case: [id number] Authorizing Provider: Karel Parra Collected: 02/13/2021 02:37 PM Nile Moya MD Ordering Location: [facility] OR Received: 02/14/2021 08:51 AM Perioperative Services Pathologist: Denise Davila MD Specimen: Condyle,Right Knee RIGHT KNEE, TOTAL KNEE ARTHROPLASTY: - DEGENERATIVE JOINT DISEASE, SEVERE - OSTEOPENIA - SOFT TISSUE WITH REACTIVE CHANGES - NEGATIVE FOR MALIGNANCY Signing Pathologist Direct Phone Line: [phone] mariia signed by Denise Davila MD on 03/06/2021 at 6:45 [id number]; [id number] osteoarthritis of right knee Condyle,Right KneeReceived in formalin labeled the patient's name, accession number and "condyle, right knee" are multiple arias-yellow bone and soft tissue fragments that range from 3.0-6.9 cm in greatest dimension. The articular surface is smooth to finely granular and displays multiple peripheral osteophytes. The cut surface is arias-yellow, trabeculated and firm. Microwave Technician sections are submitted in A1-A3 following decalcification.KIKI Angulo, HT (ASCP)PERFORMED BASIC METABOLIC PANEL 2021-02-14 04:16:00 Test Item Value Reference Range Interpretation Comme nts SODIUM (BEAKER) (test code 138 meq/L 136-145 = 381) POTASSIUM (BEAKER) (test 4.7 meq/L 3.5-5.1 code = 379) CHLORIDE (BEAKER) (test 110 meq/L 98-107 H code = 382) CO2 (BEAKER) (test code = 25 meq/L 22-29 355) BLOOD UREA NITROGEN 8 mg/dL 7-21 (BEAKER) (test code = 354) CREATININE (BEAKER) (test 0.75 mg/dL 0.57-1.25 code = 358) GLUCOSE RANDOM (BEAKER) 127 mg/dL 70-105 H (test code = 652) CALCIUM (BEAKER) (test code 8.8 mg/dL 8.4-10.2 = 697) EGFR (BEAKER) (test code = 79 mL/min/1.73 sq m ESTIMATED GFR IS NOT 1092) ACCURATE CRE ATININE CLEARANCE IN DC EDICTING GLOMERULAR FILT RATION RATE. ESTIMATED GFR IS NOT APPLICABLE FOR DIALYSIS PATIENTS. HEMOGLOBIN AND [id number] 04:07:00 Test Item Value Reference Range Interpretation Comments HEMOGLOBIN (BEAKER) (test code = 12.3 GM/DL 11.2-15.7 410) HEMATOCRIT (BEAKER) (test code = 38.1 % 34.1-44.9 411) RAD, KNEE, 1 OR 2 VIEWS, [id number] 17:39:00AP and lateral views of the prosthetic kneeReason for exam:->Postop EvalShould this be performed at the bedside?->[facility]EN[facility]KS : 1960 Sex: FFINAL REPORT RAD, KNEE, 1 OR 2 VIEWS, RIGHT HISTORY: Postop Eval. COMPARISON: None IMPRESSION:1.Lateral plate and screw fixation of the proximal tibia and cemented knee arthroplasty.No evidence for hardware complication or failure.2.Expected postoperative changes in the overlying soft tissues with swelling and soft tissue gas Signed: Sharron Benoit MDReport Verified Date/Time: 02/13/2021 17:39:50 Reading Location: [address] Transitional Reading Room FL, FLUORO, NON-SPECIFIC, UP TO 1 [id number] 09:46:00Reason for exam:->ORIF Right [facility]iaGAR[facility]ENTERName: MARGO HENDRICKS : 1960 Sex: FFluoroscopic unit utilized for a procedure performed in the OR. No interpretation was requested. Referto the operative report for findings. Refer to PACS for patient radiation dose information.CBC W/PLT COUNT & AUTO [id number] 07:06:00 Test Item Value Reference Range Interpretation Comments WHITE BLOOD CELL COUNT (BEAKER) 7.3 K/ L 3.5-10.5 (test code = 775) RED BLOOD CELL COUNT (BEAKER) 4.35 M/ L 3.93-5.22 (test code = 761) HEMOGLOBIN (BEAKER) (test code = 14.3 GM/DL 11.2-15.7 410) HEMATOCRIT (BEAKER) (test code = 42.8 % 34.1-44.9 411) MEAN CORPUSCULAR VOLUME (BEAKER) 98.4 fL 79.4-94.8 H (test code = 753) MEAN CORPUSCULAR HEMOGLOBIN 32.9 pg 25.6-32.2 H (BEAKER) (test code = 751) MEAN CORPUSCULAR HEMOGLOBIN CONC 33.4 GM/DL 32.2-35.5 (BEAKER) (test code = 752) RED CELL DISTRIBUTION WIDTH 13.3 % 11.7-14.4 (BEAKER) (test code = 412) PLATELET COUNT (BEAKER) (test 388 K/CU MM 150-450 code = 756) MEAN PLATELET VOLUME (BEAKER) 9.0 fL 9.4-12.3 L (test code = 754) NUCLEATED RED BLOOD CELLS 0 /100 WBC 0-0 (BEAKER) (test code = 413) NEUTROPHILS RELATIVE PERCENT 60 % (BEAKER) (test code = 429) LYMPHOCYTES RELATIVE PERCENT 29 % (BEAKER) (test code = 430) MONOCYTES RELATIVE PERCENT 9 % (BEAKER) (test code = 431) EOSINOPHILS RELATIVE PERCENT 1 % (BEAKER) (test code = 432) BASOPHILS RELATIVE PERCENT 0 % (BEAKER) (test code = 437) NEUTROPHILS ABSOLUTE COUNT 4.36 K/ L 1.56-6.13 (BEAKER) (test code = 670) LYMPHOCYTES ABSOLUTE COUNT 2.13 K/ L 1.18-3.74 (BEAKER) (test code = 414) MONOCYTES ABSOLUTE COUNT (BEAKER) 0.69 K/ L 0.24-0.36 H (test code = 415) EOSINOPHILS ABSOLUTE COUNT 0.08 K/ L 0.04-0.36 (BEAKER) (test code = 416) BASOPHILS ABSOLUTE COUNT (BEAKER) 0.03 K/ L 0.01-0.08 (test code = 417) IMMATURE GRANULOCYTES-RELATIVE 0 % 0-1 PERCENT (BEAKER) (test code = 6540)
[2023-02-25 13:56] VITALS: O2SAT 100
[2023-02-25 13:57] LABS: Hematocrit 39.4 % (36.0-45.0)
[2023-02-25 14:12] VITALS: BMI 41.1
[2023-02-25] MEDS: CEFAZOLIN SODIUM 2 GM in NA CHLORIDE 0.9% 100 ML IVPB SCH (17:20)
[2023-02-26] MEDS: CEFAZOLIN SODIUM 2 GM in NA CHLORIDE 0.9% 100 ML IVPB SCH ×2 (00:59→07:27)
[2023-02-26 04:39] LABS: Absolute Lymphocytes (CBC) 1.8 K/uL (0.7-4.9); Hematocrit 38.6 % (36.0-45.0); Lymphocytes % 14.8 % (15.3-44.8); MCV 97.2 fL (80-100); MPV 7.1 fL (7.6-11.3); RBC Red Blood Cell Count 3.98 M/uL (3.86-4.86)
[2023-02-26 05:05] LABS: Albumin 2.9 g/dL (3.4-5.0); Bilirubin Total 0.2 mg/dL (0.2-1.0); Potassium 4.5 mEq/L (3.5-5.1); Protein, Total 6.8 g/dL (6.4-8.2)
[2023-02-26] MEDS: TRAMADOL HCL 50 MG TAB PO PRN ×2 (07:26→12:52)
[2023-02-26] MEDS: ACETAMINOPHEN 325 MG TABLET PO PRN ×2 (07:27→12:52)
[2023-02-26] MEDS ORDERED: CELECOXIB 100 MG CAPSULE PO SCH (09:00)
[2023-02-26] MEDS ORDERED: oxyBUTYnin chloride 5 MG TAB PO SCH (09:00)
[2023-02-26 09:39] VITALS: BP 103/51
[2023-02-26 12:59] VITALS: TEMP 97.1
== END 2023-02-26 13:30 | disposition home or self-care (01) ==
LOC: OR 05:55 → 3RD-ICU 12:34
PROVIDERS: ADMIT Orthopaedic Surgery Sports Medicine; ATTEND Orthopaedic Surgery Sports Medicine
PROC: 0RRK0JZ Replacement of Left Shoulder Joint with Synthetic Substitute, Open Approach (ICD-10-PCS; principal; 2023-02-25 08:00)
DX: M19.012 Primary osteoarthritis, left shoulder (principal); M75.112 Incomplete rotator cuff tear or rupture of left shoulder, not specified as traumatic; M25.512 Pain in left shoulder; E66.9 Obesity, unspecified; Z88.0 Allergy status to penicillin
CPT/HCPCS: 85025 ×2; 80048; 36415 ×2; 85610; 88304; 88311; 85730; 85018; 85014; 80053; 73020; 97161; 23472; A4216 ×3; J2704; J0171; J2001 ×2; J2250; J3010; J1100 ×2; J2405 ×4; J7120 ×2; J7040; J0690 ×2; G0378 ×3